=== PATIENT | male | born 1930 | race Caucasian/White ===

== ENCOUNTER 2018-04-16 12:14 | Emergency (ER) | payer OTHER ==
[~2018-04-16 12:14] MED LIST: METOPROLOL SUCC50 MG; PRILOSEC20 MG
== END 2018-04-16 14:00 | disposition home or self-care (01) ==
LOC: FSED 12:14
DX: L03.115 Cellulitis of right lower limb (principal); I87.2 Venous insufficiency (chronic) (peripheral); F03.90 Unspecified dementia, unspecified severity, without behavioral disturbance, psychotic disturbance, mood disturbance, and anxiety; I10 Essential (primary) hypertension
CPT/HCPCS: 99283